=== PATIENT | female | born 1955 | race Caucasian/White ===

== ENCOUNTER 2022-04-21 18:43 | Emergency (ER) | payer MEDICARE ==
[~2022-04-21] VITALS: Ht 170.2 cm; Wt 72.6 kg
[~2022-04-21 18:43] MED LIST: CYMBALTA60 MG PO; RESTORIL15 MG PO
[2022-04-21] MEDS ORDERED: DOXEPIN HCL50 MG PO (18:55)
[2022-04-21] MEDS ORDERED: ESCITALOPRAM OX20 MG PO (18:55)
[2022-04-21] MEDS ORDERED: BUSPIRONE HCL15 MG PO (18:55)
[2022-04-21] MEDS ORDERED: DOXEPIN HCL25 MG PO (18:55)
[2022-04-21] MEDS ORDERED: SIMVASTATIN20 MG PO (18:55)
[2022-04-21] MEDS ORDERED: METOPROLOL TART25 MG PO (18:56)
[2022-04-21] MEDS ORDERED: AMOX TR-K CLV1 EAC1 PO (19:18)
== END 2022-04-21 19:47 | disposition home or self-care (01) ==
LOC: ED 18:43
DX: K11.20 Sialoadenitis, unspecified (principal); Z79.899 Other long term (current) drug therapy
CPT/HCPCS: 96372; 99283; J1100

== ENCOUNTER 2024-04-03 09:17 | Emergency (ER) | payer MEDICARE ==
[~2024-04-03] VITALS: Ht 170.2 cm; Wt 75.7 kg
[~2024-04-03 09:17] MED LIST changes: +AMOX TR-K CLV1 EAC1 PO; +BUSPIRONE HCL15 MG PO; +DOXEPIN HCL25 MG PO; +DOXEPIN HCL50 MG PO; +ESCITALOPRAM OX20 MG PO; +METOPROLOL TART25 MG PO; +SIMVASTATIN20 MG PO
[2024-04-03 10:18] LABS: INFLUENZA B NAA NEGATIVE (NEGATIVE); RESPIRATORY SYNCYTIAL VIR NAA NEGATIVE (NEGATIVE)
[2024-04-03] MEDS ORDERED: ALBUTEROL/IPRATROPIUM 3 ML NEB INH ONE (10:30)
[2024-04-03] MEDS ORDERED: PREDNISONE20 MG PO (13:14)
[2024-04-03 13:25] VITALS: BP 126/59
== END 2024-04-03 13:26 | disposition home or self-care (01) ==
LOC: ED 09:17
PROVIDERS: Emergency Medicine
DX: B34.9 Viral infection, unspecified (principal); Z79.899 Other long term (current) drug therapy
CPT/HCPCS: 71045; 87502; 87651; 94640; 99285-25; U0002